=== PATIENT | female | born 1980 | race Caucasian/White ===

== ENCOUNTER 2020-10-13 12:00 | Outpatient (CLI) | payer SELFPAY ==
--- NOTE | 2020-10-13 12:05 | XR_ITS ---
WS: [id number] Left foot, 3 views, 10/13/2020 Clinical Data: Z79.899 - Other senior care (current) drug therapy Comparison: None. Findings: No fractures or dislocations are seen. No bone destruction or erosion is noted. The joint spaces and soft tissues are normal. There is no periarticular calcification or demineralization. There is a plantar spur. XR/XR foot LT min 3V* [id number] Impression: Negative left foot.
--- NOTE | 2020-10-13 12:05 | XR_ITS ---
WS: [id number] Right hand, 3 views, 10/13/2020 Clinical Data: Z79.899 - Other jail (current) drug therapy Comparison: None. Findings: No fractures or dislocations are seen. The soft tissues are unremarkable. The joint space s are normal No periarticular demineralization or calcifications are seen. XR/XR hand RT min 3V* [id number] Impression: Negative right hand.
--- NOTE | 2020-10-13 12:05 | XR_ITS ---
WS: [id number] Right foot, 3 views, 10/13/2020 Clinical Data: Z79.899 - Other snf (current) drug therapy Comparison: None. Findings: No fractures or dislocations are seen. No bone destruction or erosion is noted. The joint spaces and soft tissues are normal. There is no periarticular calcification or demineralization. There is a plantar spur. XR/XR foot RT min 3V* [id number] Impression: Negative right foot.
--- NOTE | 2020-10-13 12:05 | XR_ITS ---
WS: [id number] Left hand, 3 views, 10/13/2020 Clinical Data: Z79.899 - Other alf (current) drug therapy Comparison: None. Findings: No fractures or dislocations are seen. The soft tissues are unremarkable. The joint spaces are normal No periarticular demineralization or calcifications are seen. XR/XR hand LT min 3V* [id number] Impression: Negative left hand.
[2020-10-13 15:10] LABS: 25 Hydroxy Vitamin D 12 ng/mL (30-100); Alanine Aminotransferase 52 U/L (0-33); Albumin Level 4.7 g/dL (3.5-5.2); Alkaline Phosphatase 70 IU/L (35-105); Aspartate Amino Transferase 34 U/L (0-32); C Reactive Protein 0.3 mg/L (0.0-4.9); Glomerular Filtration Rate 110.7 mL/min (90-130); Total Bilirubin 0.3 mg/dL (0.15-1.2); Total Protein 7.7 g/dL (6.6-8.7)
[2020-10-13 15:20] LABS: Blood Urine 3+ (Negative); Glucose Urine UA Norm (Normal); Ketones Urine 1+ (Negative); Nitrate Urine Negative (Negative); Protein Urine Neg (Negative); Specific Gravity, Urine 1.015 (1.005-1.030); Urine Appearance Clear (CLEAR); Urine Color Yellow (Yellow); pH Urine 6.5 (5-7)
[2020-10-13 15:21] LABS: Add Urine Culture? No; Bacteria Urine TRACE /hpf; Bilirubin Urine Neg (Negative); Leukocyte Esterase Urine Negative (Negative); Mucus Urine TRACE /hpf; Squamous Epithelial Cell Urine 0-4 /hpf (0-5); Urobilinogen Urine 1 mg/dL (Negative)
[2020-10-13 15:53] LABS: Urine Creatinine 209 mg/dL (28-217); Urine Protein Random 21 mg/dL
[2020-10-13 22:06] LABS: Hepatitis B Core AB, Total Non-Reactive (Nonreactive); Hepatitis B Surface Antigen Non-Reactive (Nonreactive); Hepatitis C Virus Antibody Non-Reactive (Nonreactive)
[2020-10-14 11:47] LABS: COMPLEMENT COMPONENT C3C 121 mg/dL (83-193); COMPLEMENT COMPONENT C4C 21 mg/dL (15-57)
[2020-10-14 12:17] LABS: COMPLEMENT, TOTAL (CH50) >60 U/mL (31-60)
[2020-10-14 12:52] LABS: CENTROMERE B ANTIBODY <1.0 NEG AI (<1.0 NEG); JO-1 ANTIBODY <1.0 NEG AI (<1.0 NEG); RNP ANTIBODY <1.0 NEG AI (<1.0 NEG); SCL-70 ANTIBODY <1.0 NEG AI (<1.0 NEG); SJOGREN'S ANTIBODY (SS-A) <1.0 NEG AI (<1.0 NEG); SM ANTIBODY <1.0 NEG AI (<1.0 NEG); SS-B <1.0 NEG AI (<1.0 NEG)
[2020-10-14 13:27] LABS: Cyclic Citrullinated Peptide <16 UNITS
[2020-10-15 15:17] LABS: Quantiferon Mitogen 8.85 IU/mL; Quantiferon Nil 0.01 IU/mL; Quantiferon TB Gold NEGATIVE (NEGATIVE)
[2020-10-16 14:18] LABS: THYROID PEROXIDASE ANTIBODIES 2 IU/mL (<9)
[2020-10-17 16:27] LABS: ANA SCREEN, IFA POSITIVE (NEGATIVE); ANA TITER 1:40 titer
[2020-10-20 22:39] LABS: DNA AB (DS) CRITHIDIA,IFA NEGATIVE (NEGATIVE)
== END 2020-10-13 12:01 | disposition home or self-care (01) ==
LOC: RAD 12:03
PROVIDERS: PCP Nurse Practitioner Family; Visit Provider Internal Medicine Rheumatology
DX: M19.90 Unspecified osteoarthritis, unspecified site (principal); Z79.899 Other long term (current) drug therapy; Z11.59 Encounter for screening for other viral diseases; R76.8 Other specified abnormal immunological findings in serum; Z11.1 Encounter for screening for respiratory tuberculosis; M79.7 Fibromyalgia; F17.210 Nicotine dependence, cigarettes, uncomplicated
CPT/HCPCS: 36415; 73130; 73630; 80076; 81001; 82306; 82565; 82570; 84156; 85025; 86140; 86160; 86162; 86235; 86255; 86376; 86480; 86704; 86803; 87340; 99204

== ENCOUNTER → 2020-11-22 10:00 | Outpatient (BNVA) | payer SELFPAY | PROVIDERS: PCP Nurse Practitioner Family; Visit Provider Internal Medicine Rheumatology | DX: M19.90 Unspecified osteoarthritis, unspecified site (principal); R76.8 Other specified abnormal immunological findings in serum; Z79.899 Other long term (current) drug therapy; M79.7 Fibromyalgia; F17.210 Nicotine dependence, cigarettes, uncomplicated | CPT/HCPCS: 99214 ==

== ENCOUNTER 2020-12-23 16:44 | Outpatient (CLI) | payer SELFPAY ==
[2020-12-23 17:07] LABS: Basophils % 0.3 %; Eosinophils # 0.2 10^3/uL (0.0-0.8); Eosinophils % 1.9 %; Hematocrit 40.6 % (37.0-47.0); Hemoglobin 13.3 g/dL (11.5-15.3); Lymphocytes % 29.6 %; Mean Corpuscular HGB Conc 32.8 g/dL (30.0-36.0); Mean Corpuscular Hemoglobin 33.3 pg (28.0-34.0); Mean Corpuscular Volume 101.5 fL (81-99); Monocytes # 0.7 10^3/uL (0.2-0.9); Monocytes % 6.9 %; Neutrophils # 6.19 10^3/uL (1.8-7.7); Nucleated Red Blood Cells % 0 %; Platelet Count 263 10^3/cmm (130-400); Red Cell Distribution Width 13.4 % (12.1-15.1); White Blood Count 10.1 10^3/uL (4.0-10.0)
[2020-12-23 17:34] LABS: Alanine Aminotransferase 47 U/L (0-33); Albumin Level 4.4 g/dL (3.5-5.2); Alkaline Phosphatase 53 IU/L (35-105); Aspartate Amino Transferase 29 U/L (0-32); C Reactive Protein 0.5 mg/L (0.0-4.9); Globulin 2.6 g/dL (1.3-4.6); Glomerular Filtration Rate 110.7 mL/min (90-130); Total Bilirubin 0.2 mg/dL (0.15-1.2)
== END 2020-12-23 16:45 | disposition home or self-care (01) ==
LOC: LAB 16:49
PROVIDERS: PCP Nurse Practitioner Family; Visit Provider Internal Medicine Rheumatology
DX: M19.90 Unspecified osteoarthritis, unspecified site (principal); Z79.899 Other long term (current) drug therapy
CPT/HCPCS: 80076; 82565; 85025; 85670; 86140